=== PATIENT | male | born 1960 | race Caucasian/White ===

== ENCOUNTER 2019-05-30 20:50 | Emergency (ER) | payer SELFPAY ==
[~2019-05-30] VITALS: Ht 175.3 cm; Wt 79.4 kg
--- NOTE | 2019-05-30 20:51 | NUR ---
PT RORY BLS. TAKEN TO BED 3
[2019-05-30 20:53] VITALS: BP 143/96
--- NOTE | 2019-05-30 20:53 | NUR ---
58/M RORY FROM [facility]. PER EMS THE CHIEF COMPLAINT IS PROGRESSIVE GENERALIZED WEAKNESS X 2 HOURS BUT PT STATES CC IS DIZZINESS X 2 HOURS. AMB FROM EMS [facility] TO [facility] WITH STEADY GAIT. PATIENT RATES NO PAIN AT THIS TIME. A/OX4 AND FOLLOWS COMMANDS. HR IS 102 AT THIST TIME. DENIES N/V/D. DENIES CHILLS. ERMD MADE AWARE OF STATUS. PLACED ON MONITOR. WILL CONTINUE TO MONITOR. HX- HTN, DM RX:INSULIN; HIGH BLOOD PRESSURE MEDICATIONS
[2019-05-30] MEDS ORDERED: NACL 0.9% 1,000 ML IV ONE (21:10)
--- NOTE | 2019-05-30 21:16 | NUR ---
PATIENT STATED, "I'M GOING TO GO HOME NOW AND TAKE MY INSULIN". PATIENT REFUSED TREATMENT AND LEFT ROOM.
== END 2019-05-30 21:16 | disposition left against medical advice (07) ==
LOC: MED 20:50
DX: R42 Dizziness and giddiness (principal); R53.1 Weakness; Z02.89 Encounter for other administrative examinations
CPT/HCPCS: 93005; 99283